=== PATIENT | female | born 2000 | race Caucasian/White ===

== ENCOUNTER 2023-09-20 23:33 | Emergency (ER) | payer SELFPAY ==
[~2023-09-20] VITALS: Ht 165 cm; Wt 122.5 kg
[2023-09-21 00:41] LABS: CLARITY,URINE CLEAR; COLOR,URINE YELLOW; GLUCOSE, URINE (UA) NEGATIVE (NEGATIVE); KETONES,URINE TRACE (NEGATIVE); NITRITE,URINE NEGATIVE (NEGATIVE); PROTEIN,URINE TRACE (NEGATIVE)
[2023-09-21 00:42] LABS: BACTERIA,URINE FEW /HPF; BILIRUBIN,URINE 1+ (NEGATIVE); CALCIUM OXALATE CRYSTALS,UR FEW /LPF; HYALINE CASTS, URINE RARE /LPF; LEUKOCYTE ESTERASE ,URINE NEGATIVE (NEGATIVE); SQUAMOUS EPITHELIAL CELL,UR 0-2 /HPF; WBC,URINE 0-2 /HPF
--- NOTE | 2023-09-21 00:53 | ED General ---
General Chief Complaint: Abdominal/GI Problems Stated Complaint: PROBLEMS URINATING,BACK PAIN Nursing Triage Note: PATIENT STATES TROUBLE URINATING SINCE YESTERDAY, STATES HAS TO FORCE SELF TO URINATE, STATES TODAY STARTED HAVING LOWER BACK PAIN. Source of Information: Patient Exam Limitations: No Limitations (JAKOB WOOTEN) History of Present Illness Date Seen by Provider: Sep 21, 2023 Time Seen by Provider: 00:10 Initial Comments This is a 23 yo female that presents with urinary retention and b/l lower back pain x2 days. Pt states that she started wellbutrin last sunday, but started having dark urine on Sunday so she d/c the wellbutrin. Pt developed urinary retention on 09/18 which has progressively worsened. Now, pt states that she feels like she has to urinate, but can't and then forces herself to urinate and then has "pain of urethra". Pt is sexually active and currently has one partner. LMP was beginning of August. She noted x1 instance of abnormal vaginal discharge that was yellow in color. She does have a history of "1 UTI every year". Patient had leftover ciprofloxacin from last UTI and took that x2 days. Has had associated diarrhea with mucus for the past few days. Denies known sick contacts. Denies fever, SOA, chest pain, constipation, nausea, vomiting, hematuria, hematochezia. (JAKOB WOOTEN) Timing/Duration: 1-2 Days Severity: Mild (GRABIEL HORTA MD) Allergies and Home Medications Allergies Coded Allergies: Sulfa (Sulfonamide Antibiotics) (Verified Allergy, Unknown, 09/21/23) Patient Home Medication List Home Medication List Reviewed: Yes (GRABIEL HORTA MD) Metronidazole (Metronidazole) 500 Mg Tablet, 500 MG PO BID Prescribed by: GRABIEL HORTA on 09/21/23 0202 Review of Systems Review of Systems Constitutional: see HPI EENTM: see HPI Respiratory: see HPI Cardiovascular: see HPI Gastrointestinal: see HPI Genitourinary: see HPI Musculoskeletal: see HPI Skin: see HPI Psychiatric/Neurological: See HPI Hematologic/Lymphatic: See HPI (JAKOB WOOTEN) Musculoskeletal: back pain (GRABIEL HORTA MD) Past Kuhxhwl-Rrwqbm-Sdxbil Hx Patient Social History Tobacco Use?: No Use of E-Cig and/or Vaping dev: No Substance use?: No Alcohol Use?: No Pt feels they are or have been: No (JAKOB WOOTEN) Immunizations Up To Date Influenza Vaccine Up-to-Date: No; Not Current First/Initial COVID19 Vaccinat: 2020 Second COVID19 Vaccination Tj: 2020 Third COVID19 Vaccination Date: 2021 (JAKOB WOOTEN) Past Medical History Surgery/Hospitalization HX: GALLBLADDER SURGERY, PRE DIABETIC, DEPRESSION (JAKOB WOOTEN) Physical Exam Vital Signs Vital Signs - First Documented 09/20/23 23:46 Temp 36.8 Pulse 82 Resp 20 B/P (MAP) 138/82 (100) Pulse Ox 99 O2 Delivery Room Air (GRABIEL HORTA MD) Vital Signs Capillary Refill : Less Than 3 Seconds (JAKOB WOOTEN) Height, Weight, BMI Height: '" Weight: lbs. oz. kg; 44.00 BMI Method: General Appearance: No Apparent Distress, WD/WN, Obese HEENT: PERRL/EOMI, Moist Mucous Membranes Neck: Full Range of Motion, Normal Inspection, Non Tender, Supple Respiratory: Chest Non Tender, Lungs Clear, Normal Breath Sounds, No Accessory Muscle Use, No Respiratory Distress Cardiovascular: Regular Rate, Rhythm, No Edema, No Murmur, Normal Peripheral Pulses (radialis and dorsalis pedis pulses 2+ b/l) Gastrointestinal: Normal Bowel Sounds, No Organomegaly, No Pulsatile Mass, Non Tender, Soft Back: Normal Inspection, No CVA Tenderness, No Vertebral Tenderness, Other (Lower back tenderness below L5 b/l with hypertonicity of right lumbar region) Neurologic/Psychiatric: Alert, Oriented x3, No Motor/Sensory Deficits, Normal Mood/Affect Skin: Normal Color, Warm/Dry Lymphatic: No Adenopathy (No anterior cervical lymphadenopathy) (JAKOB WOOTEN) Progress/Results/Core Measures Suspected Sepsis SIRS Temperature: Pulse: 82 Respiratory Rate: 20 Blood Pressure 138 /82 Mean: 100 Laboratory Tests 09/21/23 01:00: Creatinine 0.81 (JAKOB WOOTEN) Results/Orders Lab Results Laboratory Tests Test 09/20/23 23:45 09/21/23 01:00 Range/Units Urine Color YELLOW Urine Clarity CLEAR Urine pH 6.0 5-9 Urine Specific [place] >=1.030 1.016-1.022 Urine Protein TRACE NEGATIVE Urine Glucose (UA) NEGATIVE NEGATIVE Urine Ketones TRACE H NEGATIVE Urine Nitrite NEGATIVE NEGATIVE Urine Bilirubin 1+ H NEGATIVE Urine Urobilinogen 0.2 < = 1.0 MG/DL Urine Leukocyte Esterase NEGATIVE NEGATIVE Urine RBC (Auto) NEGATIVE NEGATIVE Urine RBC NONE /HPF Urine WBC 0-2 /HPF Urine Squamous Epithelial Cells 0-2 /HPF Urine Crystals NONE /LPF Urine Calcium Oxalate Crystals FEW H /LPF Urine Bacteria FEW H /HPF Urine Casts NONE /LPF Urine Hyaline Casts RARE /LPF Urine Mucus SMALL H /LPF Urine Culture Indicated YES Urine Test NEGATIVE NEGATIVE Sodium Level 140 135-145 MMOL/L Potassium Level 3.8 3.6-5.0 MMOL/L Chloride Level 104 98-107 MMOL/L Carbon Dioxide Level 25 21-32 MMOL/L Anion Gap 11 5-14 MMOL/L Blood Urea Nitrogen 10 7-18 MG/DL Creatinine 0.81 0.60-1.30 MG/DL Estimat Glomerular Filtration Rate 105 BUN/Creatinine Ratio 12 Glucose Level 92 70-105 MG/DL Calcium Level 9.7 8.5-10.1 MG/DL (GRABIEL HORTA MD) Micro Results Microbiology 09/21/23 Wet Prep - Final, Complete 09/20/23 Urine Culture - Final, Complete Growth Consistent (GRABIEL HORTA MD) My Orders Orders - GRABIEL HORTA MD Urinalysis (09/21/23 00:11) Urine Culture (09/20/23 23:45) Hcg,Qualitative Urine (09/21/23 00:48) Bladder Scan (09/21/23 00:49) Wet Prep (09/21/23 00:53) Chlamydia Trachomatis Urine (09/21/23 00:53) Neis Jose Dna Urine Test (09/21/23 00:53) Ed Iv/Invasive Line Start (09/21/23 01:11) Basic Metabolic Panel (09/21/23 01:11) (GRABIEL HORTA MD) Vital Signs/I&O 09/20/23 09/21/23 23:46 02:27 Temp 36.8 Pulse 82 75 Resp 20 20 B/P (MAP) 138/82 (100) 134/84 Pulse Ox 99 99 O2 Delivery Room Air Room Air (GRABIEL HORTA MD) Vital Signs/I&O Capillary Refill : Less Than 3 Seconds (JAKOB WOOTEN) Blood Pressure Mean: 100 Progress Note : Time: 01:52 Progress Note UA, Wet Prep, C. Trachomotis, and Gonorrhea tests ordered. UA was unremarkable. Wet prep showed few clue cells. (JAKOB WOOTEN) Progress Note : Time: 02:03 Progress Note bladder scan prior to d/c 22ml I have reviewed the medical student's documentation and agree - my findings and plan of care are as follows - Patient seen and examined by me - eval today includes physical exam, UA with UCG, wet prep, BMP and urine cultures for gonorrhea and chlamydia. Pertinent physical exam findings - WDWN obese female in NAD. Her abdominal exam is benign. No specific point tenderness in the abdomen. Her VSS; she is in no significant distress - resting comfortably on the ED bed. ddx includes pyelonephritis, TOA; cervicitis, UTI, - IUP vs ectopic; kidney stone, ovarian cyst Labs independently reviewed and interpreted by me. Her UCG is negative. Her urine is unconcerning for urinary tract infection. GC/chlamydia tests will result in a few days. Her wet prep was positive for "clue cells" and she will be treated for bacterial vaginosis. I have low clinical suspicion for any acute emergent concner - such as TOA/Ovairian cyst. She is not - thus ruling our ectopic . No findings suspicious for UTI. It is likely this is transient urethritis possibly due to the BV - she declines pelvic exam in the ED (she has never had a pelvic exam before and would not subject her to one here for that reason - no real reason to visualize her cervix). GC CHlamydia tests pending - will follow labs and treat as necessary. Return precautions provided in both verbal and written format. Rx for flagyl provided. All questions are sought and answered. (GRABIEL HORTA MD) Departure Impression Primary Impression: Bacterial vaginitis Disposition: HOME, SELF-CARE Condition: Stable Departure-Patient Inst. Decision time for Depature: 01:59 (GRABIEL HORTA MD) Referrals: PRABHA MACHADO MD (PCP/Family) Primary Care Physician Patient Instructions: Bacterial vaginosis Add. Discharge Instructions: Drink plenty of fluids to stay well hydrated. It will take a couple of days for your cultures to return. We will notify you of any positive results. You do need some medication for the Bacterial Vaginosis, Metronidazole 500mg twice a day for 7 days. Do not drink alcohol while taking this medication as it can cause severe vomiting. If you develop a fever, worsening pain/ vomiting or any other emergent, concerning symptoms - please return to the Emergency Department for re-evaluatio nArely Fernandez Metronidazole (Metronidazole) 500 Mg Tablet 500 MG PO BID, #14 TAB 0 Refills Prov: GRABIEL HORTA MD 09/21/23 JAKOB WOOTEN Sep 21, 2023 00:53 GRABIEL HORTA MD Sep 21, 2023 02:03
[2023-09-21 01:21] LABS: POTASSIUM 3.8 MMOL/L (3.6-5.0)
[2023-09-21 01:23] LABS: CALCIUM 9.7 MG/DL (8.5-10.1)
[2023-09-21 01:27] LABS: CREATININE SERUM 0.81 MG/DL (0.60-1.30)
[2023-09-21] MEDS ORDERED: METR-145 PO (02:02)
[2023-09-21 02:27] VITALS: BP 134/84
== END 2023-09-21 02:28 | disposition home or self-care (01) ==
LOC: ER 23:37
DX: N76.0 Acute vaginitis (principal); E66.9 Obesity, unspecified; Z68.41 Body mass index [BMI] 40.0-44.9, adult
CPT/HCPCS: 36415; 80048; 81000; 84703; 87088; 87210; 87491; 87591